=== PATIENT | female | born 1945 | race Caucasian/White ===

== ENCOUNTER 2021-10-18 13:56 | Emergency (ER) | payer OTHER ==
[~2021-10-18] VITALS: Ht 162.6 cm; Wt 63.0 kg
[2021-10-18 13:59] VITALS: BP 139/63
[2021-10-18] MEDS ORDERED: HYDROCODONE-IB1 EACH PO (15:33)
[2021-10-18] MEDS ORDERED: CLEOCIN HCL300 MG PO (15:34)
== END 2021-10-18 15:34 | disposition home or self-care (01) ==
LOC: ER 13:56
DX: G89.18 Other acute postprocedural pain (principal); K02.9 Dental caries, unspecified; E11.9 Type 2 diabetes mellitus without complications; E78.00 Pure hypercholesterolemia, unspecified; Z88.8 Allergy status to other drugs, medicaments and biological substances